=== PATIENT | female | born 1940 | race Caucasian/White ===

== ENCOUNTER 2020-07-22 09:57 | Outpatient (CLI) | payer MEDICARE, OTHER ==
[2020-07-22 12:24] LABS: BASOPHILS # (AUTO) 0.1 10^3/uL (0.0-0.1); BASOPHILS % (AUTO) 1.1 %; EOSINOPHILS # (AUTO) 0.3 10^3/uL (0.0-0.7); EOSINOPHILS % (AUTO) 6.2 %; HGB - HEMOGLOBIN 9.7 g/dL (12.0-16.0); LYMPHOCYTES # (AUTO) 1.1 10^3/uL (1.5-3.5); LYMPHOCYTES % (AUTO) 19.6 %; MEAN CORPUSCULAR HEMOGLOBIN 24.2 pg (27.0-31.0); MEAN CORPUSCULAR HGB CONC 29.4 g/dL (32.0-36.0); MEAN CORPUSCULAR VOLUME 82.3 fL (81.0-99.0); MONOCYTES # (AUTO) 0.7 10^3/uL (0.0-1.0); MONOCYTES % (AUTO) 13.3 %; NEUTROPHILS # (AUTO) 3.2 10^3/uL (1.5-6.6); NEUTROPHILS % (AUTO) 59.6 %; PLT - PLATELET COUNT 289 10^3/uL (130-450); RED BLOOD COUNT 4.01 10^6/uL (4.20-5.40); RED CELL DISTRIBUTION WIDTH 19.9 % (12.0-15.0); WHITE BLOOD COUNT 5.4 x10^3/uL (4.8-10.8)
[2020-07-22 12:28] LABS: ALBUMIN 3.7 g/dL (3.2-5.5); ALBUMIN/GLOBULIN RATIO 1.2 (1.0-2.2); ALKALINE PHOSPHATASE 105 IU/L (42-121); ALT ALANINE AMINOTRANSFERASE 11 IU/L (10-60); AST ASPARTATE AMINOTRANSFERASE 16 IU/L (10-42); BILIRUBIN,TOTAL 0.6 mg/dL (0.2-1.0); BUN - BLOOD UREA NITROGEN 29 mg/dL (6-20); CALCIUM 9.1 mg/dL (8.5-10.3); CARBON DIOXIDE - CO2 28 mmol/L (21-32); CHLORIDE 101 mmol/L (101-111); CHOL/HDL RATIO 4.6 (<4.4); CHOLESTEROL 146 mg/dL; CREATININE 1.2 mg/dL (0.4-1.0); GFR - MDRD 43 (>89); GLUCOSE 102 mg/dL (70-100); HDL CHOLESTEROL 32 mg/dL; LDL CHOLESTEROL,CALCULATED 85 mg/dL; LDL/HDL RATIO 2.7 (<4.4); POTASSIUM 4.2 mmol/L (3.5-5.0); SODIUM 137 mmol/L (135-145); TOTAL PROTEIN 6.7 g/dL (6.7-8.2); TRIGLYCERIDES 147 mg/dL; VLDL CHOLESTEROL 29 mg/dL
[2020-07-22 12:37] LABS: THYROID STIMULATING HORMONE 4.92 uIU/mL (0.34-5.60)
== END 2020-07-22 23:59 | disposition home or self-care (01) ==
LOC: LAB.WCP 09:57
PROVIDERS: ATTEND Nurse Practitioner
DX: I10 Essential (primary) hypertension (principal); Z79.899 Other long term (current) drug therapy; E78.5 Hyperlipidemia, unspecified
CPT/HCPCS: 36415; 80053; 80061; 83721; 84443; 85025

== ENCOUNTER 2020-08-22 08:00 | Outpatient (CLI) | payer MEDICARE, OTHER ==
[2020-08-22 13:43] LABS: BASOPHILS # (AUTO) 0.1 10^3/uL (0.0-0.1); BASOPHILS % (AUTO) 0.9 %; EOSINOPHILS # (AUTO) 0.5 10^3/uL (0.0-0.7); EOSINOPHILS % (AUTO) 6.6 %; HCT - HEMATOCRIT 34.5 % (37.0-47.0); HGB - HEMOGLOBIN 10.4 g/dL (12.0-16.0); LYMPHOCYTES # (AUTO) 0.8 10^3/uL (1.5-3.5); MEAN CORPUSCULAR HEMOGLOBIN 24.9 pg (27.0-31.0); MEAN CORPUSCULAR HGB CONC 30.1 g/dL (32.0-36.0); MEAN CORPUSCULAR VOLUME 82.7 fL (81.0-99.0); MEAN PLATELET VOLUME 10.6 fL (7.9-10.8); MONOCYTES # (AUTO) 0.8 10^3/uL (0.0-1.0); MONOCYTES % (AUTO) 11.3 %; NEUTROPHILS # (AUTO) 4.9 10^3/uL (1.5-6.6); NEUTROPHILS % (AUTO) 69.9 %; PLT - PLATELET COUNT 308 10^3/uL (130-450); RED BLOOD COUNT 4.17 10^6/uL (4.20-5.40); RED CELL DISTRIBUTION WIDTH 18.6 % (12.0-15.0)
[2020-08-22 14:11] LABS: ALBUMIN 3.9 g/dL (3.2-5.5); ALBUMIN/GLOBULIN RATIO 1.1 (1.0-2.2); BILIRUBIN,TOTAL 0.6 mg/dL (0.2-1.0); CALCIUM 9.3 mg/dL (8.5-10.3); POTASSIUM 3.9 mmol/L (3.5-5.0); TOTAL PROTEIN 7.4 g/dL (6.7-8.2)
[2020-08-23 09:52] LABS: FERRITIN 16.2 ng/mL (11.0-306.8)
== END 2020-08-22 23:59 | disposition home or self-care (01) ==
LOC: LAB.WCP 08:00
PROVIDERS: ATTEND Family Medicine
DX: D64.9 Anemia, unspecified (principal); R94.8 Abnormal results of function studies of other organs and systems
CPT/HCPCS: 36415; 80053; 82607; 82728; 83540; 84466; 85025

== ENCOUNTER 2021-08-08 09:43 | Outpatient (CLI) | payer MEDICARE, OTHER ==
[2021-08-08] MEDS ORDERED: LIDOCAINE-MPF 1% 10 ML AMP ONE (10:20)
--- NOTE | 2021-08-08 17:26 | Ultrasound Report ---
PROCEDURE: Abdomen Limited INDICATIONS: BREAST CA, ASCITES TECHNIQUE: Real-time focused scanning was performed of the abdomen, with image documentation. COMPARISON: Abdominal ultrasound dated 07/24/2021 FINDINGS: There is no abdominal ascites amenable to percutaneous paracentesis. IMPRESSION: Inadequate free abdominal fluid for paracentesis. Reviewed by: Brooke Barry MD on 08/08/2021 5:24 PM PDT Approved by: Brooke Barry MD on 08/08/2021 5:24 PM PDT Station ID: [id number]
== END 2021-08-08 09:44 | disposition home or self-care (01) ==
LOC: DI 09:43
PROVIDERS: ATTEND Internal Medicine
DX: R18.8 Other ascites (principal); C50.919 Malignant neoplasm of unspecified site of unspecified female breast

== ENCOUNTER 2021-08-09 13:05 | Outpatient (CLI) | payer MEDICARE, OTHER ==
--- NOTE | 2021-08-09 15:43 | CONSULTATION NOTE ---
Palliative Care Consultation - Referral Referring Provider: Dr. Khoa Escobar Time of Visit: 5684-1279 Referral setting: Home Referral Reason: Metastatic breast cancer/ACP - Information Sources Records reviewed: Previous records reviewed History/Review of Systems obtained from: Patient, Family (spouse, Manoj) Exam limitations: No limitations - History of Present Illness Brief History of Present Illness: This is an 80-year-old female who was seen and evaluated in her home for initial palliative care consultation due to metastatic breast cancer versus peritoneal carcinomatosis from ovarian mass with a left breast mass with her spouse, Manoj present. Patient reports that for several years in light of her now diagnosis of cancer she had symptoms that she would ignore and hoped would go away. She initially thought some changes in her GI symptoms but relate this to her prior history of gallbladder surgery. She did not have any weight loss. Things then culminated when she presented to the emergency department in the end of June 2021 with abdominal pain and nausea and vomiting. She was admitted at [facility] for 8 days. She underwent a CT of the abdomen and pelvis which noted mediastinal adenopathy, moderate ascites, hypodensities in the liver with "oh mental caking and layering consistent with old metastases as well as an ovarian mass and inflammation of the sigmoid colon." During her admission she was evaluated by surgery and there was no indication of bowel obstruction. She then underwent diagnostic paracentesis paracentesis with cytology negative for malignant cells. She also underwent a left breast punch biopsy with invasive carcinoma consistent with infiltrating ductal type breast cancer. Patient and spouse report they are concerned that she either has breast cancer with metastases or to primary diagnoses. Since returning home from the hospital she feels as this everything has been a whirlwind. Most specific of note regarding symptom burden has been her bilateral lower extremity edema and she is presently on furosemide with some positive effect. She was advised by her PCP that this may take up to 2 weeks for this to begin. She is presently waiting to get her Port-A-Cath placement either tomorrow or before the end of this week. She is to have chemo education 05/16 and chemotherapy to begin on 08/16. She presently reports that she is having a bowel movement typically every 3 days. She reports some firmness but no straining. Positive flatus. None she is consuming typically 2 meals per day and eating bland foods due to her history of gallbladder surgery. She was seen and evaluated by the wound care clinic for her left breast biopsy site with the area Heery healing very well. She is to have a follow-up with wound care nurse at [facility] next week. 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, Other (She states known breast tumor in the left breast for many years and she states it has been evaluated before punch biopsy June 2021 and was benign.) : reports: None HEENT: reports: Chronic hearing loss Psych: reports: None Musculoskeletal: reports: None Derm: reports: None MRSA Hx?: No - Past Surgical History General: reports: Cholecystectomy Ortho: reports: Hip replacement (right hip) HEENT: reports: Tonsil/Adenoidectomy - Substance History Use: Uses substance without health or social issues: NONE (No history of tobacco abuse) Social History - Living Situation Living arrangement: At home Living Situation: With spouse/s.o. Support System: Patient grew up in [facility] [place]. Her , Manoj served in the [employer]. 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 They relocated back to [facility] approximately 2.5 years ago. They have no children. There is no family close by. They have 1 dog, Blanka and 2 cats that are black and white, Lachelle and Nitza. The patient relays that it took her approximately 1 year to recover after she had right hip replacement. In her adulthood she expresses however phobia regarding the medical profession and therefore always avoided doctors. Her father was a pharmacist and her uncle was a physician growing up. Family History - Family History Family History: Mother: , Cancer, Father: Family History Comment/Other: Father age 95 from heart disease; mother 84 and had eating disorder, arthritis and possible breast cancer. Patient has no siblings. Medications/Allergies - Medications Home Medications: Ambulatory Orders Medication Instructions Recorded Confirmed Metoprolol Succinate [Toprol Xl] 100 mg PO DAILY 07/19/21 08/02/21 Simvastatin [Zocor] 10 mg PO DAILY 07/19/21 08/02/21 Acetaminophen [Tylenol] 650 mg PO Q4HR PRN tablet 07/26/21 08/02/21 Ferrous Sulfate Liquid [Feosol 300 mg PO DAILYWM #150 ml 07/26/21 08/02/21 Liquid] Lidocaine Patch 5% [Lidoderm Patch] 1 patch TOP DAILY PRN #30 patch 07/26/21 08/02/21 traZODone [Desyrel] 50 mg PO QPM #30 tablet 07/26/21 08/02/21 Anastrozole 1 mg ORAL DAILY #30 tablet 08/02/21 Potassium Chloride 8 meq PO DAILY 08/09/21 08/09/21 Torsemide 5 mg PO DAILY 08/09/21 08/09/21 polyethylene glycoL 3350 [Miralax] 8.5 g PO DAILY 08/09/21 08/09/21 - Allergies Allergies/Adverse Reactions: Allergies Allergy/AdvReac Type Severity Reaction Status Date / Time Penicillins AdvReac Unknown Verified 07/19/21 07:05 Review of Systems - Constitutional Constitutional: reports: Fatigue, Weight gain (due to BLE edema during hospitalization 06/2021). denies: Fever - Eyes Eyes: reports: Corrective lenses - Ears, Nose & Throat Ears, Nose & Throat: reports: Hearing loss, Hearing aids - Cardiovascular Cardiovascular: reports: Edema. denies: Chest pain - Respiratory Respiratory: denies: Wheezing - Gastrointestinal Gastrointestinal: reports: Abdominal distention, Constipation (see HPI), Other (Fair appetite). denies: Abdominal pain, Nausea, Vomiting - Genitourinary Genitourinary: denies: Dysuria - Musculoskeletal Musculoskeletal: denies: Assistive devices, Transfer issues - Integumentary Integumentary: reports: Dryness (BLE) - Neurological Neurological: reports: General weakness. denies: Dizziness - Endocrine Endocrine: denies: Diabetes type 2 - Hematologic/Lymphatic Hematologic/Lymph: reports: Anemia - All Other Systems All Other Systems: reports: Reviewed and negative Physical Exam - Vital Signs Temperature: 36.7 C Pulse Rate: 94 O2 Saturation: 97 (on RA) Blood Pressure: 124/77 (right wrist) - Physical Exam General Appearance: positive: No acute distress, Alert Eyes Bilateral: positive: Normal inspection, Other (+corrective lenses) ENT: positive: No signs of dehydration, Other (+hearing aids) Neck: positive: Trachea midline Cardiovascular: positive: Regular rate & rhythm Respiratory: positive: No respiratory distress, Breath sounds nml, Other (Left breast with palpable mass adhered to ribcage, nontender and fixed). negative: Diminished in bases Abdomen: positive: Non-tender, Nml bowel sounds, Distended. negative: Tenderness Skin: positive: Dryness (BLE), Other (+Scattered seborrheic dermatitis upper back; +biopsy site lateral breast healing well with pinpoint site almost resolved without discharge or erythema) Extremities: positive: Pedal edema (pitting edema feet to mid-calf Right (+2) greater than Left (+1)). negative: Nml appearance (+DJD changes B/l hands) Neurologic/Psychiatric: positive: Oriented x3, Mood/affect nml Palliative Care - POLST Patient has POLST: No POLST Status: DNR Pain: No pain Tiredness/Fatigue: Moderate (4-6) Drowsiness/Sedation: Mild (1-3) Nausea: None Anorexia: Moderate (4-6) Dyspnea: None Depression: None Anxiety: Mild (1-3) Sleep: Variable sleep pattern (on going issue with difficulty falling asleep but able to stay asleep easily) Performance Status: Patient is ambulatory. Slow gait. Continent of bowel and bladder. - Palliative Care Discussion: Patient due to her phobia of the medical profession and fortunately of voided having any evaluation when she was having changes with her health as well as evaluation of the left breast mass that developed. She reports that she continue to hope that things would go away or that it was a sign of being in her 80s. She states that she was someone that it was in great denial. Since her diagnosis regarding left breast cancer with possible metastases she is felt that everything has occurred in a whirlwind since then. She continues to wish to put 1 foot in front of the other and take things as they come. She is unclear regarding how information should be best presented to her and we will continue to build rapport moving forward and tease out how best to assist the patient and her spouse regarding symptom management and advance care planning. 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 Given her reports of constipation would be beneficial to add 8.5 g of MiraLAX daily d issolved in 4 to 6 ounces of liquid. To continue diuretic therapy and moisturization of the patient's lower extremities. Lengthy discussion was had today regarding pathophysiology of present physical manifestations of symptoms to assist in understanding. Palliative care will continue to provide care coordination, symptom management, anticipatory guidance and advance care planning. Recommendations/Counseling Done: 1. Anasarca and lower extremity edema due to metastases. Continue torosemide 5 mg with potassium chloride supplementation as previously prescribed by PCP. Discussed utilization of diabetic compression socks to be applied in the morning and removed in the evening for additional assistance. 2. Constipation. Sedentary lifestyle and dietary factors contributing. Initiate MiraLAX half a cap daily dissolved in 4 to 6 ounces of liquid. Discussed titration related to MiraLAX. We will continue to monitor and follow. 3. Bilateral lower extremity dryness. Recommendation for CeraVe moisturizing cream to be applied to lower legs on a daily basis. 4. Hormone positive breast cancer with mildly metastatic peritoneal carcinomatosis suspicious for either metastatic breast is primary or 2 primaries with both breast and ovarian cancer. Pending port placement this week. Is on anastrozole 1 mg daily due to estrogen positive breast cancer. Scheduled to have chemo education begun on Saturday with chemotherapy to begin next Saturday. Continue to be followed by oncology. 5. Advanced care planning. Patient has oppressed friends to be DN AR. Does not have a recollection of having POLST performed. This is something that will be addressed next visit at the patient's request and will continue to provide support for the patient and spouse during this journey. Total time spent 70 minutes with greater than 50% of the spent in counseling and coordination of care with the patient and spouse; review of palliative philosophy; supportive listening; examination of patient; review of pathophysiology of underlying etiology; symptom management; and anticipatory guidance. Disclaimer: The chart note was formulated using voice recognition technology and unfortunately sound alike errors may occur.
== END 2021-08-09 13:06 | disposition home or self-care (01) ==
LOC: PC 13:05
PROVIDERS: ATTEND Nurse Practitioner Family
DX: Z51.5 Encounter for palliative care (principal); R60.1 Generalized edema; K59.00 Constipation, unspecified; R23.8 Other skin changes; C78.6 Secondary malignant neoplasm of retroperitoneum and peritoneum; C50.912 Malignant neoplasm of unspecified site of left female breast; Z17.0 Estrogen receptor positive status [ER+]; F40.232 Fear of other medical care; Z79.899 Other long term (current) drug therapy; Z79.811 Long term (current) use of aromatase inhibitors; Z66 Do not resuscitate
CPT/HCPCS: 99344

== ENCOUNTER 2021-08-24 11:00 | Outpatient (CLI) | payer MEDICARE, OTHER ==
--- NOTE | 2021-08-24 20:06 | CONSULTATION NOTE ---
Palliative Care Follow Up - Referral Referring Provider: Dr. Khoa Escobar Time of Visit: [id number] Referral setting: [facility] Referral Reason: Metastatic breast Ca/Insomnia - Information Sources Records reviewed: Previous records reviewed History/Review of Systems obtained from: Patient, Family (spouse, Manoj) Exam limitations: Clinical condition (+SKAGWAY) - History of Present Illness Update Brief HPI Update: This is an 80-year-old female who was seen and evaluated at [facility] for follow-up due to metastatic breast cancer versus peritoneal carcinomatosis from ovarian mass with a left breast pants, insomnia with her spouse, Manoj present. Provider wore N95 mask. Patient has previously reported several years of some changes in her GI symptoms but thought it was related to history of gallbladder surgery and she did not have any weight loss. Everything culminated when she presented to the emergency department the end of June 2021 with abdominal pain with nausea and vomiting and was admitted to [facility] for 8 days. She then was diagnosed with left metastatic breast cancer versus peritoneal carcinomatosis with ovarian mass. She had her chest wall port placed at [facility] on 08/23 and this went well. She has begun her weekly infusions of carboplatinum and Taxol infusions. Thus far, she reports no side effects and no changes. She feels that her energy is gradually improving overall. Her appetite remains stable and this is supported by her spouse who is providing more in her portions that the patient is consuming. She expresses difficulty with initiating sleep and is fine when she gets to sleep. She was discharged from the hospital with trazodone 50 mg tablets and has found that assistive and would like to continue. Also during hospitalization she developed significant lower extremity edema and was started on torosemide. Subsequently, she has been utilizing compression socks applied in the morning and removed in the evening since last evaluation and this is helped. She reports that her left lower leg has almost returned to normal but her right lower leg continues to have some swelling. At times she feels that there is an itch to her right lower extremity that will subsequently resolve. Past Medical History: Patient has a past medical history of hypertension, hyperlipidemia, GERD, chronic hearing loss, right hip replacement, cholecystectomy, metastatic breast cancer left breast diagnosed June 2021. Social History - Living Situation Living arrangement: At home Living Situation: With spouse/s.o. Support System: Patient grew up in [facility]. Her , Manoj served in the [employer]. 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 They relocated back to [facility] approximately 2.5 years ago. They have no children. There is no close close family by. They have 1 dog, Blanka and 2 cats, Lachelle and Nitza. Medications/Allergies - Medications Home Medications: Ambulatory Orders Medication Instructions Recorded Confirmed Metoprolol Succinate [Toprol Xl] 100 mg PO DAILY 07/19/21 08/02/21 Simvastatin [Zocor] 10 mg PO DAILY 07/19/21 08/02/21 Acetaminophen [Tylenol] 650 mg PO Q4HR PRN tablet 07/26/21 08/02/21 Ferrous Sulfate Liquid [Feosol 300 mg PO DAILYWM #150 ml 07/26/21 08/02/21 Liquid] traZODone [Desyrel] 50 mg PO QPM #30 tablet 07/26/21 08/02/21 Anastrozole 1 mg ORAL DAILY #30 tablet 08/02/21 Potassium Chloride 8 meq PO DAILY 08/09/21 08/09/21 Torsemide 5 mg PO DAILY 08/09/21 08/09/21 Lidocaine/Prilocain 2.5% Cream 5 applic TOP UD #1 gm 08/14/21 [Emla 2.5% Cream] Ondansetron Odt [Zofran Odt] 4 mg TL Q6H PRN #30 tab 08/14/21 Prochlorperazine Maleate 10 mg PO Q6HR PRN #30 tab 08/14/21 [Compazine] - Allergies Allergies/Adverse Reactions: Allergies Allergy/AdvReac Type Severity Reaction Status Date / Time Penicillins AdvReac Unknown Verified 07/19/21 07:05 Review of Systems - Constitutional Constitutional: reports: Fatigue (improving, see HPI), Weight gain (due to edema). denies: Fever, Poor appetite - Eyes Eyes: reports: Corrective lenses - Ears, Nose & Throat Ears, Nose & Throat: reports: Hearing loss, Hearing aids - Cardiovascular Cardiovascular: reports: Edema (see HPI). denies: Chest pain - Respiratory Respiratory: denies: Cough - Gastrointestinal Gastrointestinal: reports: Abdominal distention, Other (see HPI regarding appetite). denies: Abdominal pain, Constipation, Nausea - Genitourinary Genitourinary: denies: Dysuria - Musculoskeletal Musculoskeletal: denies: Transfer issues - Integumentary Integumentary: reports: Dryness - Neurological Neurological: reports: General weakness - Psychiatric Psychiatric: denies: Depression - Hematologic/Lymphatic Hematologic/Lymph: reports: Anemia - All Other Systems All Other Systems: reports: Reviewed and negative Physical Exam - Vital Signs Temperature: 36.7 C Pulse Rate: 88 O2 Saturation: 97 (on RA) Blood Pressure: 138/76 - Physical Exam General Appearance: positive: No acute distress, Alert Eyes Bilateral: positive: Other (+corrective lenses) ENT: positive: No signs of dehydration Neck: positive: Trachea midline Cardiovascular: positive: Regular rate & rhythm Respiratory: positive: No respiratory distress, Breath sounds nml Abdomen: positive: Non-tender, Soft, Nml bowel sounds, Distended Skin: positive: Other (orosco noted to RLE due to edema) Extremities: positive: Pedal edema (RLE +2; LLE trace to +1) Neurologic/Psychiatric: positive: Oriented x3, Mood/affect nml Palliative Care - POLST Patient has POLST: Yes POLST Status: DNR Pain: No pain Tiredness/Fatigue: Mild (1-3) Drowsiness/Sedation: Mild (1-3) Nausea: None Anorexia: Mild (1-3) Dyspnea: None Depression: Mild (1-3) Anxiety: Mild (1-3) Feelings of wellbeing/Perceived Quality of Life: Good Sleep: Variable sleep pattern Constipation: Managed - Palliative Care Discussion: Patient has been presently surprised with her tolerance regarding chemotherapy thus far. She continues to report that she feels as though she is in an transitory state and continues to navigate through this process. She recognizes that there may be some future side effects and she is prepared regarding this. She is having difficulty with insomnia and would benefit from continuation of her trazodone. A refill was sent to pharmacy of her choice, [facility] and discussion was had regarding sleep hygiene and practices. 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 Advised to continue to torsemide moving forward. She is having symptoms of insomnia continue trazodone as ordered at bedtime. Palliative care to continue to provide care coordination, symptom management, anticipatory guidance and advance care planning. Recommendations/Counseling Done: 1. Anasarca and lower extremity edema due to metastases. Continue torsemide 5 mg with potassium chloride supplementation as previously prescribed by PCP. Discussed that this is to be continued moving forward. Continue utilization of diabetic compression socks to be applied in the morning and removed in the evening. Continue lower extremity elevation. Would expect to continue to see some improvement moving forward with chemotherapy. 2. Insomnia. Difficulty with sleep onset. Continue trazodone 50 mg at bedtime. Discussed not to discontinue abruptly. Also reviewed sleep hygiene. Rx of 90-day supplies sent to [facility] per patient's request. 3. Constipation. Sedentary lifestyle and dietary factors contributing. Continue MiraLAX half a cap daily. Continue to monitor and titrate. 4. Hormone positive breast cancer with metastatic peritoneal carcinomatosis suspicious for either metastatic breast as primary or 2 primaries with breast and ovarian cancer. Status post port placement on 08/24. Is on anastrozole 1 mg daily. Presently receiving weekly carboplatinum and Taxol infusions. To continue being followed by oncology. 5. Advanced care planning. Patient has expressed to be DN AR. Unclear if POLST has been completed. Will complete at next visit. Total time spent 30 minutes with greater than 50% of the spent in counseling coronation of care with the patient and spouse; examination patient; medication management and anticipatory guidance. Disclaimer: The chart note was formulated using voice recognition technology and unfortunately sound alike errors may occur.
== END 2021-08-24 11:01 | disposition home or self-care (01) ==
LOC: PC 11:00
PROVIDERS: ATTEND Nurse Practitioner Family
DX: Z51.5 Encounter for palliative care (principal); C50.919 Malignant neoplasm of unspecified site of unspecified female breast; R53.83 Other fatigue; R60.0 Localized edema; G47.00 Insomnia, unspecified; K59.00 Constipation, unspecified; C78.6 Secondary malignant neoplasm of retroperitoneum and peritoneum; Z66 Do not resuscitate; I10 Essential (primary) hypertension; E78.5 Hyperlipidemia, unspecified; K21.9 Gastro-esophageal reflux disease without esophagitis
CPT/HCPCS: 99214

== ENCOUNTER 2021-12-28 11:07 | Outpatient (CLI) | payer MEDICARE, OTHER ==
[2021-12-28] MEDS ORDERED: DIATRIZOATE MEGLU/DIATRIZO SOD 30 ML BOTTLE PO ONE ×2 (11:24→14:51)
--- NOTE | 2021-12-28 14:43 | CT Report ---
PROCEDURE: Abdomen/Pelvis W INDICATIONS: LT BREAST CA CONTRAST: IV CONTRAST: Optiray 320 ml: 100 PO CONTRAST: Redi-Cat ml30 TECHNIQUE: After the administration of oral and intravenous contrast, 5 mm thick sections acquired from the diap hragms to the symphysis. 5 mm thick coronal and sagittal reformats were acquired. For radiation dos e reduction, the following was used: automated exposure control, adjustment of mA and/or kV accordin g to patient size. COMPARISON: Same day CT chest, 08/08/2021. CT abdomen pelvis 10/31/2021, 07/19/2021. FINDINGS: Image quality: Excellent. ABDOMEN: Lung bases: Please see separate dictated same-day CT chest. Right lung base pulmonary nodule measurin g 0.6 cm. Fibrotic change. No pleural effusion. Large left breast mass. Solid organs: Liver is within normal limits in size. There is a heterogeneous hypoechoic dense lesion at the medial right lobe of liver measuring 1.8 x 1.6 cm, (5/29), likely similar but now seen given IV contrast.. Small well-circumscribed hepatic hypodensities are unchanged and have the appearance of benign cysts. Gallbladder is absent. Biliary system is non dilated. Atrophic with cystic dilatatio n of the pancreatic duct, (8/21). Small left adrenal nodule measuring 1.1 cm, (5/32), unchanged. [place] re right hydronephrosis, worsened. There is diminished enhancement of the right kidney compared to th e left. Level of obstruction of the right ureter is at the pelvic remnant due to large cystic pelvic lesion. Lesion at the inferior pole the left kidney measuring 2.9 x 2.6 cm, (8/31), likely similar in size but now seen given IV contrast. Peritoneum and bowel: Prominent stool the colon. The appendix is not identified. No small bowel obstr uction. Stomach is within normal limits. Small volume of ascites in the left pelvis and left abdomen. No pneumoperitoneum. Peritoneal mass in the left lower quadrant, (5/60). Small peritoneal nodules, (5/35) Nodes and vessels: No retroperitoneal or mesenteric adenopathy by size criteria. Aorta and inferior vena cava are normal in size. Circumferential calcified atherosclerotic plaque. Miscellaneous: No ventral hernias. PELVIS: Genitourinary: Bladder is within normal limits. Uterus is bulky in appearance with multiple small phill cifications likely due to calcified fibroids. Large cystic lesion in the pelvis measuring 14.6 x 14.1 x 12.9 cm, ( and ), previously remeasured is 17.1 x 16.3 x 14.9 cm. There is a thin septatio n. There is mild calcification at the right lateral aspect. Suspect that this originates from the rig ht ovary. Miscellaneous: No inguinal hernias or adenopathy. Bones: No suspicious bony lesions. No vertebral body compression fractures. Moderate DDD. Moderate scoliosis. Right hip arthroplasty. IMPRESSION: 1. Severe right kidney hydronephrosis, worsened. Level of obstruction at the pelvic brim. 2. Large cystic lesion measuring 14.6 cm is slightly decreased. This may originate from the right ova ry. 3. Heterogeneous lesion in the medial right liver measuring 1.8 cm is indeterminate. 4. Cystic dilatation of the pancreatic duct. 5. Left kidney inferior pole lesion measuring 2.9 cm is indeterminate. 6. Small volume of ascites, unchanged. Peritoneal mass in the left lower quadrant. This is in keeping with peritoneal carcinomatosis. 7. Left breast mass. Right lower lobe pulmonary nodule. -Please see separately dictated same-day CT chest. Reviewed by: Amrit Christiansen MD on 12/28/2021 2:42 PM PDT Approved by: Amrit Christiansen MD on 12/28/2021 2:42 PM PDT Station ID: [id number]
--- NOTE | 2021-12-28 15:18 | CT Report ---
PROCEDURE: CHEST W INDICATIONS: LT BREAST CA CONTRAST: IV CONTRAST: Optiray 320 ml: 100 PO CONTRAST: Redi-Cat ml30 TECHNIQUE: After the administration of intravenous contrast, 1 mm axial images were acquired from the pulmonary apices through the posterior costophrenic angles. Axial 5 mm soft tissue kernel reconstructions were performed as well as 8 mm axial MIP and coronal and sagittal 5 mm reformations. For radiation dose reduction, the following was used: automated exposure control, adjustment of mA and/or kV according to patient size. COMPARISON: Same day CT abdomen pelvis with IV contrast. CT chest 10/31/2021, 08/08/2021. FINDINGS: Image quality: Excellent. Lungs and pleura: Peripheral reticular thickening and mosaic attenuation. Right lung base pulmonary nodule measuring 0.8 cm, (3/166), unchanged. There are a few small pulmonary cysts. No atelectasis. A irways are clear. No pleural effusions or pneumothorax. Mediastinum: Heart size is normal. No pericardial effusion. Shotty appearing mediastinal nodes. Sma ll right hilar node measuring 0.7 cm. Thoracic aorta and central pulmonary arteries are normal in siz e. No central pulmonary embolism. Oral contrast in the esophagus. This could be seen in gastroesophag eal reflux. No hiatal hernia. Bones and chest wall: Left breast upper outer quadrant mass measuring 5 cm, (2), previously 5.7 c m on 08/08/2021. Right-sided port with the catheter tip at the lower third of the SVC. No enlarged axi llary nodes seen. No internal mammary nodes identified. No suspicious bony lesions. No vertebral bod y compression fractures. Mild scoliosis. Thyroid gland is prominent. Small hypodense thyroid nodules. Abdomen: Please see submitted dictated same day CT abdomen and pelvis. IMPRESSION: 1. Left breast upper outer quadrant mass measuring 5 cm is mildly decreased in size compared to July 2021. 2. No axillary adenopathy. 3. Shotty appearing mediastinal and right hilar nodes. 4. Similar diffuse peripheral reticular thickening in the lungs. This is likely due to interstitial l cheryl disease. 5. Right lower lobe pulmonary nodule measuring 0.8 cm is unchanged. No new or enlarging pulmonary nod ules identified. Please see separately dictated same day CT abdomen and pelvis. Reviewed by: Armit Christiansen MD on 12/28/2021 3:16 PM PDT Approved by: Amrit Christiansen MD on 12/28/2021 3:16 PM PDT Station ID: [id number]
== END 2021-12-28 11:08 | disposition home or self-care (01) ==
LOC: DI 11:07
PROVIDERS: ATTEND Internal Medicine
DX: C50.412 Malignant neoplasm of upper-outer quadrant of left female breast (principal); N13.30 Unspecified hydronephrosis; R19.00 Intra-abdominal and pelvic swelling, mass and lump, unspecified site; K76.9 Liver disease, unspecified; K86.89 Other specified diseases of pancreas; N28.9 Disorder of kidney and ureter, unspecified; R18.8 Other ascites; R91.1 Solitary pulmonary nodule; R19.04 Left lower quadrant abdominal swelling, mass and lump
CPT/HCPCS: 71260; 74177; Q9963; Q9967

== ENCOUNTER 2022-01-20 10:34 | Outpatient (CLI) | payer MEDICARE, OTHER ==
--- NOTE | 2022-01-20 18:36 | CT Report ---
PROCEDURE: ABDOMEN W/WO INDICATIONS: SECONDARY MALIGNANT NEOPLASM OF RETROPERITON CONTRAST: IV CONTRAST: Optiray 320 ml: 100 PO CONTRAST: *NO PO CONTRAST TECHNIQUE: 4 phase scanning was performed. After the administration of intravenous contrast, 5 mm thick section s acquired from the diaphragm to the symphysis. 5 mm coronal and sagittal reformats were acquired. For radiation dose reduction, the following was used: automated exposure control, adjustment of mA a nd/or kV according to patient size. COMPARISON: 12/28/2021, 10/31/2021, 09/18/2021 Correlation is made with the recent prior chest CT, 12/29/19. FINDINGS: Image quality: Excellent. Lung bases: Mild apparent fibrotic changes can be seen at the lung bases. Heart size is normal. A le ft breast mass is partially seen. Liver: In this patient with this given history, scrutiny is given to right medial liver at the site of the previously seen area of abnormal enhancement. At this site, there is a low-density lesion seen that measures up to 1.8 cm. On precontrast imaging, this measures 40 Hounsfield units. On the arteri al phase imaging, the central portion measures 40 Hounsfield units. On the postcontrast imaging, this measures 66 Hounsfield units. On the delayed imaging, this measures 85 Hounsfield units. Several simple appearing liver cysts are seen elsewhere, which measure water density on each phase of imaging. The liver demonstrates normal size. Other solid organs: Gallbladder has been removed Biliary system is non dilated. Pancreas is atroph ic and demonstrates a dilated pancreatic duct. Spleen demonstrates several low-density lesions, which are similar to the prior examination. No adrenal nodules. There is severe right-sided hydronephrosis. Right kidney is atrophic. On precontrast imaging, no ston es can be seen. On the CT performed of the abdomen only, the previously seen lesion at the inferior p ole of the left kidney is not well seen. Nodes and vessels: No retroperitoneal or mesenteric adenopathy by size criteria. Aorta and inferior vena cava are normal in size. Atherosclerotic calcification is seen. Bowel and peritoneum: Unenhanced bowel loops are normal in caliber. No free fluid or air. There is a moderate amount of stool seen within the colon. Bones: No suspicious bony lesions. No vertebral body compression fractures. Mild dextroconvex scol iotic curvature is seen. Degenerative changes are seen throughout, which are worst involving the visu alized lower lumbar spine. Miscellaneous: No ventral hernias. IMPRESSION: 1.8 cm liver lesion is seen on the right medially. The CT appearance is nonspecific, alt anita it may be related to a fibrotic lesion. Metastatic disease is possible. Attention should be pa id to this focus on any future follow-up studies. Simple appearing liver cysts are seen elsewhere. Left breast mass partially seen. There is an atrophic right kidney, with severe hydronephrosis. There is a moderate amount of stool seen within the colon. Please correlate with clinical constipatio n. Atrophic pancreas, with a dilated pancreatic duct. Abnormal spleen, with stable hypodense lesions. Please consider metastatic disease. Incidental note is made of: Cholecystectomy Dextroconvex scoliotic curvature Degenerative changes, worst within the lower lumbar spine Reviewed by: Evangelista Gregory MD on 01/20/2022 5:34 PM AKSANA Approved by: Evangelista Gregory MD on 01/20/2022 5:34 PM AKSANA Station ID: [id number]
== END 2022-01-20 10:35 | disposition home or self-care (01) ==
LOC: DI 10:34
PROVIDERS: ATTEND Internal Medicine
DX: C50.412 Malignant neoplasm of upper-outer quadrant of left female breast (principal); C78.6 Secondary malignant neoplasm of retroperitoneum and peritoneum; R93.2 Abnormal findings on diagnostic imaging of liver and biliary tract; K76.89 Other specified diseases of liver; N13.30 Unspecified hydronephrosis; K86.89 Other specified diseases of pancreas; R93.89 Abnormal findings on diagnostic imaging of other specified body structures
CPT/HCPCS: 74170; Q9967

== ENCOUNTER 2022-04-16 10:06 | Outpatient (CLI) | payer MEDICARE, OTHER ==
--- NOTE | 2022-04-17 12:56 | Mammography Report ---
BILATERAL DIGITAL DIAGNOSTIC MAMMOGRAM 3D/2D: 04/16/2022 CLINICAL: Personal history of left breast cancer. Due for bilateral. Comparison: Multiphase liver CT 01/20/2022, PET/CT 01/04/2022, CT chest, abdomen and pelvis 12/28/2021. There are scattered areas of fibroglandular density in both breasts (category b / 25%-50% glandular t issue). There is a 3.6 cm high density mass in the left breast posterior depth superior region seen on the me diolateral oblique view only. No enlarged axillary lymph nodes seen. No right breast mass seen. No other significant masses, calcif ications, or other findings are seen in either breast. IMPRESSION: INCOMPLETE: NEEDS ADDITIONAL IMAGING EVALUATION The 3.6 cm high density mass in the left breast is indeterminate. A targeted ultrasound is recommended and will immediately follow. This exam was interpreted at Station ID: [id number]. NOTE: For mammograms, a report in lay terms will be sent to the patient. Approximately 15% of breast malignancies will not be visualized mammographically. In the management of a palpable breast mass, a negative mammogram must not discourage biopsy of a clinically suspicious lesion. Electronically Signed By: Amrit Christiansen M.D. [facility] [place]/:04/16/2022 12:11:44 ACR BI-RADS Category 0: Incomplete 3340F PARENCHYMAL PATTERN: (A) - The breast(s) demonstrate(s) scattered fibroglandular densities. BI-RADS CATEGORY: (0) - 0 Ultrasound [id number] Immediate follow-up LATERALITY: (B)
--- NOTE | 2022-04-17 12:56 | Ultrasound Report ---
LIMITED ULTRASOUND OF LEFT BREAST AND AXILLA: 04/16/2022 CLINICAL: Palpable left breast lump. Comparison is made to exam dated: 04/16/2022 mammogram - [facility]. Comparison: Multiphase liver CT 01/20/2022, PET/CT 01/04/2022, CT chest, abdomen and pelvis 12/28/2021. Color flow and real-time ultrasound of the left breast upper outer quadrant and axilla regions were p erformed. Silvestre scale images of the real-time examination were reviewed. There is a 4.3 cm x 3.5 cm x 3.1 cm mass with a microlobulated margin in the left axillary tail. Thi s mass is hypoechoic with posterior acoustic shadowing. This correlates as palpated, with mammograph y findings, and the previous skin biopsy. Color flow imaging demonstrates that there is vascularity present. The lesion extends to the skin. Lesion measured 4.4 x 4.4 x 4[address] chest 10/31/2021. No significant abnormalities were seen sonographically in the left axilla. IMPRESSION: KNOWN BIOPSY PROVEN MALIGNANCY Left axillary tail biopsy proven malignancy measures 4.3 cm x 3.5 cm x 3.1 cm. Lesion is similar in s ize to prior CT chests. No enlarged left axillary lymph nodes. This exam was interpreted at Station ID: [id number]. Electronically Signed By: Amrit Christiansen M.D. [facility]/:04/16/2022 12:23:21 Ultrasound BI-RADS: 6 Known biopsy proven malignancy BI-RADS CATEGORY: (6) - 6 Unspecified - other recall n/a LATERALITY: (B)
== END 2022-04-16 10:07 | disposition home or self-care (01) ==
LOC: DI 10:06
PROVIDERS: ATTEND Internal Medicine
DX: C50.612 Malignant neoplasm of axillary tail of left female breast (principal)

== ENCOUNTER 2022-10-04 14:53 | Outpatient (CLI) | payer MEDICARE, OTHER ==
[2022-10-04 18:00] LABS: CALCIUM 9.1 mg/dL (8.5-10.3); CREATININE 1.6 mg/dL (0.4-1.0); POTASSIUM 4.4 mmol/L (3.5-5.0)
[2022-10-04 21:03] LABS: ESTIMATED AVERAGE GLUCOSE 123 mg/dL (70-100); HEMOGLOBIN A1c% 5.9 % (4.27-6.07)
== END 2022-10-04 14:54 | disposition home or self-care (01) ==
LOC: LAB.N 14:53
PROVIDERS: ATTEND Nurse Practitioner Family
DX: R73.9 Hyperglycemia, unspecified (principal)
CPT/HCPCS: 36415; 80048; 83036

== ENCOUNTER 2022-10-12 10:04 | Outpatient (CLI) | payer MEDICARE, OTHER ==
--- NOTE | 2022-10-15 09:58 | Ultrasound Report ---
LIMITED ULTRASOUND OF LEFT BREAST AND AXILLA: 10/12/2022 CLINICAL: Personal history of left breast cancer. Comparison is made to exams dated: 10/12/2022 mammogram, 04/16/2022 ultrasound, and 04/16/2022 mammog [facility]. Color flow and real-time ultrasound of the left breast upper outer quadrant and axilla regions were performed. Silvestre scale images of the real-time examination were reviewed. Redemonstration of previously described 3.8 cm x 3.4 cm x 2.8 cm irregular mass with indistinct and m icrolobulated margins in the left axillary tail. This irregular mass is hypoechoic and heterogeneous ly echogenic with posterior acoustic shadowing. This abnormality is less prominent and mildly decrea sed in size compared to most recent ultrasound. This correlates as palpated area of concern, with summer mography findings, and the previous biopsy proven malignancy. Color flow imaging demonstrates that t here is vascularity present. No significant abnormalities were seen sonographically in the left axilla. No adenopathy. IMPRESSION: KNOWN BIOPSY PROVEN MALIGNANCY The 3.8 cm x 3.4 cm x 2.8 cm irregular mass is a known biopsy positive for malignancy. Overall, this is stable to mildly decreased in size and prominence. No axillary adenopathy. Recommend follow up with her oncologist. Findings and recommendations were conveyed to the patient during today's evaluation. This exam was interpreted at Station ID: [id number]. Electronically Signed By: Freddie Tamez M.D. [facility]/:10/12/2022 11:37:19 Ultrasound BI-RADS: 6 Known biopsy proven malignancy BI-RADS CATEGORY: (6) - 6 Unspecified - other recall n/a LATERALITY: (B)
--- NOTE | 2022-10-15 09:58 | Mammography Report ---
UNILATERAL LEFT DIGITAL DIAGNOSTIC MAMMOGRAM 3D/2D: 10/12/2022 CLINICAL: Additional evaluation requested from prior study. Comparison is made to exam dated: 04/16/2022 mammogram - [facility]. There are scattered areas of fibroglandular density in the left breast (category b / 25%-50% glandula r tissue). There is a 3.4 cm x 4.1 cm high density mass in the left breast posterior depth superior region seen on the mediolateral oblique view only. This is not significantly changed. There is architectural di stortion associated with the mass. No other significant masses or calcifications are seen in the breast. IMPRESSION: INCOMPLETE: NEEDS ADDITIONAL IMAGING EVALUATION The 3.4 cm x 4.1 cm high density mass in the left breast is indeterminate. An ultrasound is recommend ed for further evaluation and is scheduled to immediately follow this examination. This exam was interpreted at Station ID: [id number]. NOTE: For mammograms, a report in lay terms will be sent to the patient. Approximately 15% of breast malignancies will not be visualized mammographically. In the management of a palpable breast mass, a negative mammogram must not discourage biopsy of a clinically suspicious lesion. Electronically Signed By: Freddie Tamez M.D. [facility]/:10/12/2022 11:12:08 ACR BI-RADS Category 0: Incomplete 3340F PARENCHYMAL PATTERN: (A) - The breast(s) demonstrate(s) scattered fibroglandular densities. BI-RADS CATEGORY: (0) - 0 Ultrasound [id number] Immediate follow-up LATERALITY: (L)
== END 2022-10-12 10:05 | disposition home or self-care (01) ==
LOC: DI 10:04
PROVIDERS: ATTEND Internal Medicine
DX: C50.412 Malignant neoplasm of upper-outer quadrant of left female breast (principal)

== ENCOUNTER 2023-07-15 14:38 | Outpatient (CLI) | payer MEDICARE, OTHER ==
--- NOTE | 2023-07-15 18:04 | XRAY Report ---
PROCEDURE: Chest 2V INDICATIONS: COUGH TECHNIQUE: 2 views of the chest were acquired. COMPARISON: CT of chest dated 06/12/2023 and 01/16/2023. FINDINGS: Surgical changes and devices: Right chest wall Port-A-Cath tip is in SVC.. Lungs and pleura: Markedly increased interstitial lung markings are noted throughout bilateral lung gil consistent with patient's known interstitial fibrotic changes. There is blunting of bilateral costophrenic angles suggestive of small bilateral pleural effusion and bibasilar atelectasis. No lina s pneumothorax. Mediastinum: Mediastinal contours appear normal. Heart size is normal. Bones and chest wall: No suspicious bony lesions. Overlying soft tissues appear unremarkable. IMPRESSION: Chronic interstitial fibrotic changes. Small bilateral pleural effusion and bibasilar atelectasis paula stanley small infiltrates. No gross pneumothorax. Reviewed by: Venkat Beatty MD on 07/15/2023 6:02 PM PDT Approved by: Venkat Beatty MD on 07/15/2023 6:02 PM PDT Station ID: [id number]
== END 2023-07-15 14:39 | disposition home or self-care (01) ==
LOC: DI 14:38
PROVIDERS: ATTEND Nurse Practitioner Adult Health
DX: R05.3 Chronic cough (principal); J84.10 Pulmonary fibrosis, unspecified; J90 Pleural effusion, not elsewhere classified; Z79.899 Other long term (current) drug therapy; C25.9 Malignant neoplasm of pancreas, unspecified
CPT/HCPCS: 36415; 80048

== ENCOUNTER 2023-07-15 14:54 | Outpatient (CLI) | payer MEDICARE, OTHER ==
[2023-07-15 15:25] LABS: CALCIUM 9.3 mg/dL (8.5-10.3); CREATININE 1.5 mg/dL (0.6-1.3)
== END 2023-07-15 14:55 | disposition home or self-care (01) ==
LOC: LAB 14:54
PROVIDERS: ATTEND Nurse Practitioner Adult Health
DX: Z79.899 Other long term (current) drug therapy (principal); C25.9 Malignant neoplasm of pancreas, unspecified
CPT/HCPCS: 36415; 80048

== ENCOUNTER 2023-07-17 08:00 | Outpatient (CLI) | payer MEDICARE, OTHER | END 2023-07-17 23:59 | disposition home or self-care (01) | LOC: PC 08:00 | PROVIDERS: ATTEND Nurse Practitioner Gerontology | DX: Z51.5 Encounter for palliative care (principal); C25.9 Malignant neoplasm of pancreas, unspecified; C50.919 Malignant neoplasm of unspecified site of unspecified female breast; C56.9 Malignant neoplasm of unspecified ovary; R05.3 Chronic cough; N18.30 Chronic kidney disease, stage 3 unspecified; J90 Pleural effusion, not elsewhere classified; R63.0 Anorexia; R53.83 Other fatigue; Z79.811 Long term (current) use of aromatase inhibitors; Z79.899 Other long term (current) drug therapy; R97.8 Other abnormal tumor markers; R60.0 Localized edema; R09.02 Hypoxemia | CPT/HCPCS: 99215; G2212; 99417 ==

== ENCOUNTER 2023-07-26 08:00 | Outpatient (CLI) | payer MEDICARE, OTHER | END 2023-07-26 23:59 | disposition home or self-care (01) | LOC: PC 08:00 | PROVIDERS: ATTEND Nurse Practitioner Adult Health | DX: Z51.5 Encounter for palliative care (principal); R60.1 Generalized edema; M62.81 Muscle weakness (generalized); C56.9 Malignant neoplasm of unspecified ovary; C50.919 Malignant neoplasm of unspecified site of unspecified female breast; C25.9 Malignant neoplasm of pancreas, unspecified; F41.9 Anxiety disorder, unspecified; Z63.8 Other specified problems related to primary support group; Z71.89 Other specified counseling | CPT/HCPCS: 99215 ==

== ENCOUNTER 2023-07-28 08:00 | Outpatient (CLI) | payer MEDICARE, OTHER | END 2023-07-28 23:59 | disposition home or self-care (01) | LOC: PC 08:00 | PROVIDERS: ATTEND Nurse Practitioner Adult Health | DX: Z51.5 Encounter for palliative care (principal); C50.912 Malignant neoplasm of unspecified site of left female breast; C25.9 Malignant neoplasm of pancreas, unspecified | CPT/HCPCS: 99426 ==

== ENCOUNTER 2023-07-31 08:00 | Outpatient (CLI) | payer MEDICARE, OTHER | END 2023-07-31 23:59 | disposition home or self-care (01) | LOC: PC 08:00 | PROVIDERS: ATTEND Nurse Practitioner Adult Health | DX: Z51.5 Encounter for palliative care (principal); R60.1 Generalized edema; R53.83 Other fatigue; R06.09 Other forms of dyspnea; R42 Dizziness and giddiness; R63.0 Anorexia; R68.81 Early satiety; Z66 Do not resuscitate; M62.81 Muscle weakness (generalized); F41.9 Anxiety disorder, unspecified; Z63.8 Other specified problems related to primary support group; I12.9 Hypertensive chronic kidney disease with stage 1 through stage 4 chronic kidney disease, or unspecified chronic kidney disease; N18.4 Chronic kidney disease, stage 4 (severe); Z71.89 Other specified counseling; Z79.811 Long term (current) use of aromatase inhibitors; Z79.899 Other long term (current) drug therapy; C25.9 Malignant neoplasm of pancreas, unspecified; C50.912 Malignant neoplasm of unspecified site of left female breast; C56.9 Malignant neoplasm of unspecified ovary; Z74.09 Other reduced mobility | CPT/HCPCS: 99215 ==

== ENCOUNTER 2023-08-07 08:00 | Outpatient (CLI) | payer MEDICARE, OTHER | END 2023-08-07 23:59 | disposition home or self-care (01) | LOC: PC 08:00 | PROVIDERS: ATTEND Nurse Practitioner Adult Health | DX: Z51.5 Encounter for palliative care (principal); R60.1 Generalized edema; G62.9 Polyneuropathy, unspecified; M62.81 Muscle weakness (generalized); G47.00 Insomnia, unspecified; C50.912 Malignant neoplasm of unspecified site of left female breast; C56.9 Malignant neoplasm of unspecified ovary; C25.9 Malignant neoplasm of pancreas, unspecified; Z79.899 Other long term (current) drug therapy; Z79.811 Long term (current) use of aromatase inhibitors; Z74.09 Other reduced mobility; R53.83 Other fatigue; R42 Dizziness and giddiness; R05.9 Cough, unspecified; R06.02 Shortness of breath; Z60.8 Other problems related to social environment; Z55.6 Problems related to health literacy; Z71.89 Other specified counseling; Z66 Do not resuscitate | CPT/HCPCS: 99350 ==

== ENCOUNTER 2023-08-20 08:00 | Outpatient (CLI) | payer MEDICARE, OTHER | END 2023-08-20 08:01 | disposition home or self-care (01) | LOC: PC 08:00 | PROVIDERS: ATTEND Nurse Practitioner Adult Health | DX: Z51.5 Encounter for palliative care (principal); G62.9 Polyneuropathy, unspecified; K72.90 Hepatic failure, unspecified without coma; R60.1 Generalized edema; F41.9 Anxiety disorder, unspecified; C25.9 Malignant neoplasm of pancreas, unspecified; C56.9 Malignant neoplasm of unspecified ovary; C50.919 Malignant neoplasm of unspecified site of unspecified female breast; R06.02 Shortness of breath; R63.0 Anorexia; M62.81 Muscle weakness (generalized); Z74.09 Other reduced mobility; R41.89 Other symptoms and signs involving cognitive functions and awareness; R53.83 Other fatigue; Z66 Do not resuscitate; Z60.8 Other problems related to social environment; Z79.899 Other long term (current) drug therapy; Z79.811 Long term (current) use of aromatase inhibitors | CPT/HCPCS: 99215 ==

== ENCOUNTER 2023-08-27 08:00 | Outpatient (CLI) | payer MEDICARE, OTHER | END 2023-08-27 23:59 | disposition home or self-care (01) | LOC: PC 08:00 | PROVIDERS: ATTEND Nurse Practitioner Adult Health | DX: Z51.5 Encounter for palliative care (principal); C50.912 Malignant neoplasm of unspecified site of left female breast; C25.9 Malignant neoplasm of pancreas, unspecified | CPT/HCPCS: 99426 ==

== ENCOUNTER 2023-08-29 16:20 | Outpatient (CLI) | payer MEDICARE, OTHER | END 2023-08-29 23:59 | disposition EMS.NT | LOC: EMS 16:20 | DX: Z03.89 Encounter for observation for other suspected diseases and conditions ruled out (principal) ==